=== PATIENT | male | born 1990 | race Caucasian/White ===

== ENCOUNTER 2020-12-18 16:27 | Emergency (ER) | payer OTHER, BC ==
[2020-12-18] MEDS ORDERED: Acetaminophen 500 MG TAB ONE (17:36)
== END 2020-12-18 19:10 | disposition home or self-care (01) ==
LOC: ERS 16:27
DX: S93.401A Sprain of unspecified ligament of right ankle, initial encounter (principal); S00.431A Contusion of right ear, initial encounter; M25.531 Pain in right wrist; V03.90XA Pedestrian on foot injured in collision with car, pick-up truck or van, unspecified whether traffic or nontraffic accident, initial encounter; Y92.410 Unspecified street and highway as the place of occurrence of the external cause
CPT/HCPCS: 70450; 72125